=== PATIENT | female | born 1955 | race Caucasian/White ===

== ENCOUNTER 2024-05-11 08:57 | Observation (INO) | payer OTHER, MEDICARE ==
[2024-05-11] MEDS ORDERED: AZITHROMYCIN 250 MG TAB ONE (09:24)
[2024-05-11] MEDS ORDERED: IPRATROPIUM BROM 0.5MG/2.5ML ONE (09:24)
[2024-05-11] MEDS ORDERED: METHYLPREDNISOLONE 125 MG INJ ONE (09:24)
[2024-05-11] MEDS ORDERED: ALBUTEROL 2.5 MG/3 ML NEB SOL ONE (09:24)
[2024-05-11 09:32] LABS: Absolute Eosinophils 0.2 K/uL (0-0.5); Absolute Lymphocytes (CBC) 1.2 K/uL (0.7-4.9); Absolute Monocytes 0.6 K/uL (0.1-1.3); Absolute Neutrophil 4.6 K/uL (1.8-8.0); Basophils % 0.7 % (0-1.3); Eosinophils % 2.5 % (0-4.4); Hematocrit 49.1 % (36.0-45.0); Lymphocytes % 18.3 % (15.3-44.8); MCH 30.7 pg (27.0-35.0); MCHC 32.7 g/dL (32.0-36.0); MCV 93.9 fL (80-100); MPV 8.3 fL (7.6-11.3); Monocytes % 9.7 % (3.3-12.3); Neutrophils % 68.8 % (41.7-73.7); Nucleated Red Blood Cells % 0.1 % (0-0); Platelets 246 thou/uL (152-406); RBC Red Blood Cell Count 5.23 M/uL (3.86-4.86); Red Cell Distribution Width 13.6 % (12.1-15.2)
[2024-05-11 09:49] LABS: Anion Gap 6.2 mEq/L (5.0-15.0); Potassium 4.2 mEq/L (3.5-5.1)
[2024-05-11 10:01] LABS: SARS-CoV-2 Antigen CONTROL BLUE LINE VIS/BG OK; SARS-CoV-2 Antigen Rapid Res Negative (Negative)
--- NOTE | 2024-05-11 11:09 | ER ---
Nurse's Notes [facility] Name: Nicolasa Barrios Age: 68 yrs Sex: Female : 1955 Arrival Date: 05/11/2024 Time: 08:57 Bed 6 Private MD: Diagnosis: COPD/ Chronic obstructive pulmonary disease with (acute) exacerbation Presentation: 05/11 09:03 Chief complaint: EMS states: Hx of stage 4 COPD has recently been seeing a direct marketing representative who has her monitoring her home o2 to see if she qualifies for home oxygen, started feeling SOB yesterday, was worse today, checked Spo2 and was 80%, when EMS arrived pt was 92% RA, placed on 3L NC and SOB improved, SPo2 96%. Coronavirus screen: Vaccine status: Patient reports being unvaccinated. Ebola Screen: No symptoms or risks identified at this time. Initial Sepsis Screen: Does the patient meet any 2 criteria? No. Patient's initial sepsis screen is negative. Does the patient have a suspected source of infection? No. Patient's initial sepsis screen is negative. Risk Assessment: Do you want to hurt yourself or someone else? Patient reports no desire to harm self or others. Onset of symptoms was May 11, 2024. 09:03 Method Of Arrival: EMS: [facility] 09:03 Acuity: DOMINIK 3 Triage Assessment: 09:18 General: Appears in no apparent distress. comfortable, slender, well groomed, Behavior ph is calm, cooperative, appropriate for age. Pain: Denies pain. Neuro: Level of Consciousness is awake, alert, obeys commands, Oriented to person, place, time, situation. Cardiovascular: Capillary refill < 3 seconds in bilateral fingers Patient's skin is warm and dry. Respiratory: Airway is patent Respiratory effort is even, unlabored, Respiratory pattern is regular, symmetrical. GI: No signs and/or symptoms were reported involving the gastrointestinal system. Derm: Skin is pink, warm \T\ dry. Musculoskeletal: Circulation, motion, and sensation intact. Range of motion: intact in all extremities. Historical: - Allergies: 09:19 No Known Allergies; ph - Home Meds: :18 Anoro Ellipta 62.5-25 mcg/actuation inhalation Blister, With Inhalation Device [Active];ph - PMHx: 09:18 Chronic obstructive lung disease; ph - Immunization history:: Adult Immunizations unknown. - Infectious Disease History:: Denies. - Social history:: Smoking status: Patient/guardian denies using tobacco, Stopped _ months ago 1. Screenin:25 [facility] ED Fall Risk Assessment (Adult) History of falling in the last 3 months, ph including since admission No falls in past 3 months (0 pts) Confusion or Disorientation No (0 pts) Intoxicated or Sedated No (0 pts) Impaired Gait No (0 pts) Mobility Assist Device Used No (0 pt) Altered Elimination No (0 pt) Score/Fall Risk Level 0 - 2 = Low Risk Oriented to surroundings, Maintained a safe environment, Hourly rounding (assess needs \T\ fall precautionary measures) done. Abuse screen: Denies threats or abuse. Denies injuries from another. Nutritional screening: No deficits noted. Tuberculosis screening: No symptoms or risk factors identified. Assessment: 09:22 General: SEE TRIAGE ASSESSMENT. ph 10:22 Reassessment: Patient appears in no apparent distress at this time. No changes from [facility] previously documented assessment. Patient and/or family updated on plan of care and expected duration. Pain level reassessed. Patient is alert, oriented x 3, equal unlabored respirations, skin warm/dry/pink. 11:06 Reassessment: Patient appears in no apparent distress at this time. No changes from [facility] previously documented assessment. Patient and/or family updated on plan of care and expected duration. Pain level reassessed. Patient is alert, oriented x 3, equal unlabored respirations, skin warm/dry/pink. 12:30 Reassessment: Patient appears in no apparent distress at this time. Patient and/or ph family updated on plan of care and expected duration. Pain level reassessed. Patient is alert, oriented x 3, equal unlabored respirations, skin warm/dry/pink. 14:00 Reassessment: Patient appears in no apparent distress at this time. Patient and/or ph family updated on plan of care and expected duration. Pain level reassessed. Patient is alert, oriented x 3, equal unlabored respirations, skin warm/dry/pink. Vital Signs: 09:03 BP 123 / 75; Pulse 88; Resp 18; Temp 97.9; Pulse Ox 95% on 2 lpm NC; Weight 33.57 kg; ph Height 5 ft. 4 in. ; 10:58 BP 99 / 73; Pulse 82; Resp 20 S; Pulse Ox 91% on R/A; kc6 10:58 Pulse Ox 87% on R/A; kc6 11:05 Pulse Ox 96% on 2.5 lpm NC; kc6 12:00 BP 104 / 64; Pulse 83; Resp 20; Pulse Ox 97% on 2 lpm NC; ph 13:00 BP 104 / 73; Pulse 79; Resp 20; Temp 97.2; Pulse Ox 96% on 2 lpm NC; ph 14:00 BP 99 / 68; Pulse 78; Resp 18; Pulse Ox 96% on 2 lpm NC; ph 15:00 BP 102 / 68; Pulse 79; Resp 16; Temp 97.5; Pulse Ox 95% on 2 lpm NC; ph 09:03 Body Mass Index 12.70 (33.57 kg, 162.56 cm) ph ED Course: 09:01 Patient arrived in ED. ec2 09:01 Elder Meyer MD is Attending Physician. ec2 09:03 Laurence Serrano RN is Primary Nurse. ph 09:18 Triage completed. ph 09:18 Arm band placed on Patient placed in an exam room, on a stretcher, on oxygen, on ph environmental monitoring technician, on pulse oximetry. 09:25 Initial lab(s) drawn, by ED staff, sent to lab. Inserted saline lock: 20 gauge in right ph antecubital area, using aseptic technique. Blood collected. Flushed with 10 mL NS. 09:34 SARS RAPID Sent. kc6 09:34 Influenza Screen (a \T\ B) Sent. kc6 10:41 Chest Single View In Process Unspecified. EDMS 11:08 Melvin Espana MD is Hospitalizing Provider. ec2 11:14 Patient has correct armband on for positive identification. Bed in low position. Call light in reach. Side rails up X 1. quality assurance monitor body on. Pulse ox on. NIBP on. Door closed. Noise minimized. 11:14 No provider procedures requiring assistance completed. Patient admitted, IV remains in ph place. Administered Medications: 09:33 Drug: DuoNeb Nebulize (3:1) (2.5 mg - 0.5 mg) 3 ml Nebulizer once Route: Nebulizer; kc6 11:06 Follow up: Response: No adverse reaction kc6 09:46 Drug: MethylPrednisoLONE IVP 125 mg IVP once Route: IVP; Site: right antecubital; kc6 11:06 Follow up: Response: No adverse reaction kc6 09:46 Drug: AZITHromycin PO 500 mg PO once Route: PO; kc6 11:06 Follow up: Response: No adverse reaction kc6 11:39 Drug: Rocephin IV 1 grams IV at calculated rate once; Given slow IV push per pharmacy ph instructions Route: IV; Rate: calculated rate; Site: right antecubital; 12:10 Follow up: Response: No adverse reaction; IV Status: Completed infusion ph Medication: 11:14 VIS not applicable for this client. ph Outcome: 11:08 Decision to Hospitalize by Provider. ec2 15:35 Patient left the ED. kc6 15:35 Admitted to Med/surg accompanied by tech, family with patient, room 218, with oxygen, ph 15:35 Condition: stable 15:35 Instructed on the need for admit, Signatures: Dispatcher [employer] Laurence Trevino RN RN ph Campbell, Kaitlyn, RN RN kc6 Elder Meyer MD MD ec2 Corrections: (The following items were deleted from the chart) 09:51 09:51 In radiology for Chest Single View+RAD.RAD.BRZ. JOSE GARCIA
--- NOTE | 2024-05-11 11:09 | EDPHYS ---
Physician Documentation [facility] Name: Nicolasa Barrios Age: 68 yrs Sex: Female : 1955 Arrival Date: 05/11/2024 Time: 08:57 Bed 6 Private MD: ED Physician Elder Meyer HPI: 05/11 09:09 This 68 yrs old Female presents to ER via Unassigned with complaints of sob. ec2 09:09 Patient arrives today for evaluation of shortness of breath. Patient reports several ec2 days of shortness of breath. Patient reports that she has been experiencing some cough as well as some fatigue and decreased p.o. intake. No vomiting, no diarrhea, no fevers. No chest pain. Patient reports history of COPD. Not on baseline oxygen.. Historical: - Allergies: 09:19 No Known Allergies; ph - Home Meds: 09:18 Anoro Ellipta 62.5-25 mcg/actuation inhalation Blister, With Inhalation Device [Active];ph - PMHx: 09:18 Chronic obstructive lung disease; ph - Immunization history:: Adult Immunizations unknown. - Infectious Disease History:: Denies. - Social history:: Smoking status: Patient/guardian denies using tobacco, Stopped _ months ago 1. ROS: 09:09 Constitutional: as per hpi ec2 Exam: 09:09 Constitutional: GEN: NAD Head: atraumatic Eyes: EOMI Ears: External ears are ec2 normal. CV: regular rate LUNGS: no respiratory distress ABD: non-distended SKIN: no evidence of rashes MSK: no evidence of trauma Vital Signs: 09:03 BP 123 / 75; Pulse 88; Resp 18; Temp 97.9; Pulse Ox 95% on 2 lpm NC; Weight 33.57 kg; ph Height 5 ft. 4 in. ; 10:58 BP 99 / 73; Pulse 82; Resp 20 S; Pulse Ox 91% on R/A; kc6 10:58 Pulse Ox 87% on R/A; kc6 11:05 Pulse Ox 96% on 2.5 lpm NC; kc6 12:00 BP 104 / 64; Pulse 83; Resp 20; Pulse Ox 97% on 2 lpm NC; ph 13:00 BP 104 / 73; Pulse 79; Resp 20; Temp 97.2; Pulse Ox 96% on 2 lpm NC; ph 14:00 BP 99 / 68; Pulse 78; Resp 18; Pulse Ox 96% on 2 lpm NC; ph 15:00 BP 102 / 68; Pulse 79; Resp 16; Temp 97.5; Pulse Ox 95% on 2 lpm NC; ph 09:03 Body Mass Index 12.70 (33.57 kg, 162.56 cm) ph MDM: 09:04 Patient medically screened. ec2 09:09 Data reviewed: vital signs. ED course: Patient arrives today for shortness of breath. ec2 Examination remarkable for well-appearing nontoxic individuals otherwise in no acute distress with a reassuring examination. Will obtain lab work, EKG, chest x-ray.. 09:38 ED course: EKG independently reviewed and interpreted by me, shows normal sinus rhythm, ec2 rate of 85, no acute ST segment elevations, nonactionable intervals.. 09:52 ED course: Metabolic profile reassuring, CBC nonactionable, BNP minimally elevated. . ec2 11:08 ED course: Patient with saturations in the mid 80s at 86% on room air, will admit for ec2 oxygen requirement. Discussed case with hospitalist, pending admission.. 05/11 09:09 Order name: Basic Metabolic Panel; Complete Time: 09:51 ec2 05/11 09:09 Order name: CBC with Diff; Complete Time: 09:51 ec2 05/11 09:09 Order name: BNP; Complete Time: 09:51 ec2 05/11 09:09 Order name: Influenza Screen (a \T\ B); Complete Time: 10:08 ec2 05/11 09:09 Order name: SARS RAPID; Complete Time: 10:08 ec2 05/11 12:32 Order name: Basic Metabolic Panel EDLA 05/11 12:32 Order name: Basic Metabolic Panel EDMS 05/11 12:32 Order name: Basic Metabolic Panel EDMS 05/11 12:32 Order name: Basic Metabolic Panel EDLA 05/11 12:32 Order name: CBC with Automated Diff EDMS 05/11 12:32 Order name: CBC with Automated Diff EDMS 05/11 12:32 Order name: CBC with Automated Diff EDMS 05/11 12:32 Order name: CBC with Automated Diff EDMS 05/11 12:32 Order name: NT PRO-BNP EDLA 05/11 12:32 Order name: NT PRO-BNP EDLA 05/11 10:41 Order name: Chest Single View; Complete Time: 13:53 EDMS 05/11 09:09 Order name: EKG; Complete Time: 09:10 ec2 05/11 12:43 Order name: Social Service Consult EDLA 05/11 09:09 Order name: Cardiac monitoring; Complete Time: 09:17 ec2 05/11 09:09 Order name: EKG - Nurse/Tech; Complete Time: 09:33 ec2 05/11 09:09 Order name: IV Saline Lock; Complete Time: 09:22 ec2 05/11 09:09 Order name: Labs collected and sent; Complete Time: 09:22 ec2 05/11 09:09 Order name: O2 Per Protocol; Complete Time: 09:17 ec2 05/11 09:09 Order name: O2 Sat Monitoring; Complete Time: 09:17 ec2 05/11 09:51 Order name: Misc. Order: wean off oxygen; Complete Time: 10:03 ec2 Administered Medications: 09:33 Drug: DuoNeb Nebulize (3:1) (2.5 mg - 0.5 mg) 3 ml Nebulizer once Route: Nebulizer; kc6 11:06 Follow up: Response: No adverse reaction kc6 09:46 Drug: MethylPrednisoLONE IVP 125 mg IVP once Route: IVP; Site: right antecubital; kc6 11:06 Follow up: Response: No adverse reaction kc6 09:46 Drug: AZITHromycin PO 500 mg PO once Route: PO; kc6 11:06 Follow up: Response: No adverse reaction kc6 11:39 Drug: Rocephin IV 1 grams IV at calculated rate once; Given slow IV push per pharmacy ph instructions Route: IV; Rate: calculated rate; Site: right antecubital; 12:10 Follow up: Response: No adverse reaction; IV Status: Completed infusion ph Disposition Summary: 05/11/24 11:08 Hospitalization Ordered Notes: Hospitalization Status: Inpatient Admission ec2 Provider: Melvin Espana ec2 Location: Telemetry/MedSurg (Inpatient) ec2 Condition: Stable ec2 Problem: new ec2 Symptoms: have improved ec2 Bed/Room Type: Standard ec2 [facility] 14[facility]19[facility] eb Diagnosis - COPD/ Chronic obstructive pulmonary disease with (acute) exacerbation ec2 Discharge Instructions: - Discharge Summary Sheet ec2 - Chronic Obstructive Pulmonary Disease Exacerbation ec2 Forms: - Medication Reconciliation Form ec2 - SBAR form ec2 - Leadership Thank You Letter ec2 Prescriptions: - Zithromax Z-Guy 250 mg Oral Tablet - take 1 tablet ORAL route as directed for 5 days Day 1 - take two (2) tablets ec2 one time. Day 2, 3, 4 , 5 take one (1) tablet once daily.; 6 tablet; Refills: 0, Product Selection Permitted - Prednisone 20 mg Oral Tablet - take 2 tablets ORAL route once daily for 5 days; 10 tablet; Refills: 0, Product ec2 Selection Permitted Signatures: Dispatcher [employer] EDLaurence Gatica RN RN Monique Delcid Kaitlyn, RN RN kc6 Elder Meyer MD MD ec2 Corrections: (The following items were deleted from the chart) 09:10 09:10 Influenza Screen (A \T\ B)+BA.LAB.BRZ ordered. EDMS EDMS 09:10 09:10 SARS-COV-2 Antigen Rapid+I.LAB.BRZ ordered. EDMS EDMS 09:51 09:10 Chest Single View+RAD.RAD.BRZ ordered. EDMS EDMS 14:19 11:08 ec2 eb
[2024-05-11] MEDS ORDERED: NA CHLORIDE 0.9% 50 ML ONE (11:17)
[2024-05-11] MEDS ORDERED: CEFTRIAXONE 1000 MG/VIAL ONE (11:17)
[2024-05-11] MEDS ORDERED: ACETAMINOPHEN 500 MG TAB PO PRN (12:28)
--- NOTE | 2024-05-11 12:38 | P.HP ---
Certification for Inpatient Patient admitted to: Observation With expected LOS: <2 Midnights Patient will require the following post-hospital care: Other (for Home O2) Practitioner: I am a practitioner with admitting privileges, knowledge of patient current condition, hospital course, and medical plan of care. Services: Services provided to patient in accordance with Admission requirements found in Title 42 Section 412.3 of the Code of Federal Regulations <Ninfa Epps - Last Filed: 05/11/24 12:33> Patient History Date of Service: 05/11/24 History of Present Illness: Ms. Barrios is a 68-year-old female with a past medical history of COPD. She has decreased and is attempting to stop smoking and is down to 10 cigarettes/day. She sees Dr. Rodriguez for pulmonology who comes down twice monthly. She states this time of year she does have a bit more COPD exacerbation symptoms but does not have home O2. She lives with her son and asscnlaj-ru-egd and has admitted to increasing shortness of breath over the past 3 days. She presented to the emergency department this morning with a SpO2 of 80. We will admit her for IV steroids, nebs, antibiotics, and attempt room air sats for home oxygen. Her normal medication regimen includes Ellipta and Anoro. Home medications list reviewed: Yes (Ellipta and Anoro) - Past Medical/Surgical History Has patient received pneumonia vaccine in the past: No -: COPD -: Appendectomy -: Tonsillectomy -: Hysterectomy Psychosocial/ Personal History: Lives with son and wijzyweh-el-dsl, has 5 children, her twin sister lives 3 hours away. - Family History Family History: Reviewed- Non-Contributory - Social History Smoking Status: Current every day smoker Smoking therapy provided: Yes Patient receptive to therapy: Yes Alcohol use: No CD- Drugs: No Caffeine use: Yes Place of Residence: Home (With son and [id number]-ibo) <Ninfa Epps - Last Filed: 05/11/24 12:33> Date of Service: 05/11/24 <Melvin Espana - Last Filed: 05/11/24 14:50> Allergies No Known Allergies Allergy (Unverified 05/11/24 12:33) Review of Systems 10-point ROS is otherwise unremarkable General: As per HPI Eyes: Unremarkable ENT: Unremarkable Respiratory: Other (Worsening over the past 3 days), As per HPI Cardiovascular: Other (Denies chest pain) Gastrointestinal: Unremarkable Genitourinary: Unremarkable Musculoskeletal: Unremarkable Integumentary: Unremarkable Neurological: Unremarkable Lymphatics: Unremarkable <Ninfa Eppslen - Last Filed: 05/11/24 12:33> Physical Examination - Physical Exam General: Alert, In no apparent distress, Cachectic HEENT: Atraumatic, Normocephalic Respiratory: Normal air movement, Other (98% on 3 L) Cardiovascular: No edema, Normal pulses, Regular rate/rhythm Capillary refill: <2 Seconds Gastrointestinal: Soft and benign Musculoskeletal: No clubbing Integumentary: No rashes Neurological: Normal speech, Normal tone, Normal affect Lymphatics: No axilla or inguinal lymphadenopathy External genitalia: Deferred Rectal: Deferred - Studies Laboratory Data (last 24 hrs) 05/11/24 05/11/24 09:20 09:20 WBC 6.70 Hgb 16.0 H Hct 49.1 H Plt Count 246 Sodium 138 Potassium 4.2 BUN 8 Creatinine 0.64 Glucose 114 H Microbiology Data (last 24 hrs): 05/11/24 09:31 Nasopharnyx Influenza Type A Antigen Screen - Final 05/11/24 09:31 Nasopharnyx Influenza Type B Antigen Screen - Final <Ninfa Epps Ney - Last Filed: 05/11/24 12:33> - Studies Laboratory Data (last 24 hrs) 05/11/24 05/11/24 09:20 09:20 WBC 6.70 Hgb 16.0 H Hct 49.1 H Plt Count 246 Sodium 138 Potassium 4.2 BUN 8 Creatinine 0.64 Glucose 114 H Microbiology Data (last 24 hrs): 05/11/24 09:31 Nasopharnyx Influenza Type A Antigen Screen - Final 05/11/24 09:31 Nasopharnyx Influenza Type B Antigen Screen - Final <Melvin Espana - Last Filed: 05/11/24 14:50> Assessment and Plan - Plan COPD exacerbation Chest x-ray negative pneumonia 1. Continue IV antibiotics 2. Neb treatments every 4 to 6 hours as needed 3. O2 per protocol 4. Continue with gentle hydration 5. Monitor and trend labs including CBC, CMP 6. room air sat for home O2 7. GI and DVT prophylaxis - Advance Directives Does patient have a Living Will: No Does patient have a Durable POA for Healthcare: No <Ninfa Epps Ney - Last Filed: 05/11/24 12:33> - Plan Pt brionna nd examined. I agree with the note by the DIRECTOR OF STATE. Pt is a 68yo female with past medical history of COPD who presents with shortness of breath. The SOB started 3 days ago and progressively worsened to the extent that her oxygen saturation dropped to 80% on room air this morning despite being compliant with Ellipta and Anoro. She also reports productive cough with clear sputum. This made her come to the ER. On admission, pt was hypoxic. Lab studies show wbc 6.7, Hgb 16, K 4.2, Cr 0.64. At bedside, pt is in NAD. A/P: Acute COPD exacerbation: Will continue solumedrol, duoneb, oxygen and abx. Consulted Pulm. Pt takes anoro and Ellipta Severe malnutrition: Pt was encouraged to eat. Will consult Pediatric Geneticist. DVT ppx: SCD Code: full <Melvin Espana - Last Filed: 05/11/24 14:50>
[2024-05-11] MEDS: IPRATROPIUM BROM 0.5MG/2.5ML NEB SCH (13:00)
[2024-05-11] MEDS: ALBUTEROL 2.5 MG/3 ML NEB SOL NEB SCH (13:00)
--- NOTE | 2024-05-11 13:47 | RAD REPORT ---
Procedure: Chest Single View History: Cough Comparison: none The lungs are markedly hyperaerated.. 12 mm nodular opacity mid right lung. No significant pleural effusion noted. The heart is normal size. IMPRESSION: Marked COPD 12 mm nodular opacity mid right lung may represent pulmonary nodule. Unenhanced CT chest could be obt ained for further evaluation
[2024-05-11] MEDS: METHYLPREDNISOLONE 40 MG INJ IV SCH (15:50)
[2024-05-11 15:51] VITALS: BMI 12.7
[2024-05-12 06:06] LABS: Absolute Lymphocytes (CBC) 0.6 K/uL (0.7-4.9); Absolute Monocytes 0.2 K/uL (0.1-1.3); Basophils % 0.4 % (0-1.3); Hematocrit 42.8 % (36.0-45.0); Hemoglobin 13.8 g/dL (12.0-15.0); Lymphocytes % 8.6 % (15.3-44.8); MCH 30.4 pg (27.0-35.0); MCHC 32.3 g/dL (32.0-36.0); MCV 94.1 fL (80-100); MPV 8.4 fL (7.6-11.3); Monocytes % 3.6 % (3.3-12.3); Neutrophils % 87.4 % (41.7-73.7); Platelets 199 thou/uL (152-406); RBC Red Blood Cell Count 4.55 M/uL (3.86-4.86); Red Cell Distribution Width 13.3 % (12.1-15.2)
[2024-05-12] MEDS: PANTOPRAZOLE 40MG TABLET PO SCH (06:20)
[2024-05-12 06:24] LABS: Anion Gap 4.8 mEq/L (5.0-15.0); Potassium 3.8 mEq/L (3.5-5.1)
[2024-05-12 08:30] VITALS: O2SAT 94
[2024-05-12] MEDS: NICOTINE 7 MG/PAT TD SCH (09:00)
[2024-05-12 09:36] LABS: Band Neutrophils 5 % (0-1); Blood Morphology Comment NOT SEEN (NOT SEEN); Differential Total Cells Count 100; Lymphocytes 10 % (15-42); Monocytes 6 % (0-10); Platelet Estimate ADEQ; Segmented Neutrophils 89 % (40-80)
[2024-05-12] MEDS: CEFTRIAXONE 1,000 MG in NA CHLORIDE 0.9% 50 ML IVPB SCH (09:42)
[2024-05-12] MEDS: ASPIRIN EC 81 MG TAB PO SCH (09:42)
[2024-05-12] MEDS ORDERED: AZITHROMYCIN 250 MG TAB PO ONE (10:18)
--- NOTE | 2024-05-12 10:23 | P.DS ---
Admission Date: 05/11/24 Discharge Date: 05/12/24 Reason for Admission: Acute hypoxia secondary to COPD exacerbation Brief History of Present Illness: Ms. Barrios is a 68-year-old female with a past medical history of COPD. She has decreased and is attempting to stop smoking and is down to 10 cigarettes/day. She sees Dr. Rodriguez for pulmonology who comes down twice monthly. She states this time of year she does have a bit more COPD exacerbation symptoms but does not have home O2. She lives with her son and rudnuobb-zv-plr and has admitted to increasing shortness of breath over the past 3 days. She presented to the emergency department this morning with a SpO2 of 80. We will admit her for IV steroids, nebs, antibiotics, and attempt room air sats for home oxygen. Her normal medication regimen includes Ellipta and Anoro. Hospital Course: Ms. Barrios did great over the course of her hospitalization. Home oxygen has been arranged. Antibiotic switched to p.o. Zithromax first dose was given prior to discharge. She understands she should continue Ellipta and Anoro. Will give a short burst steroids orally. Ms. Barrios will follow-up with Dr. Veras in 1 week. <Ninfa Epps - Last Filed: 05/12/24 10:18> Admission Date: 05/11/24 Discharge Date: 05/12/24 Hospital Course: Pt seen and examined. I agree with the note by the SAMPLER AND TEST PREPARER. Pt is feeling better. Will dc pt with prednisone and azithro. Continue home oxygen and other home meds. Follow up with PCP and Mailroom Courier. <Melvin Espana - Last Filed: 05/12/24 10:58> Disposition: ROUTINE DISCHARGE Discharge Condition: GOOD Vital Signs/Physical Exam: Temp Pulse Resp BP Pulse Ox 97.4 F 78 17 109/57 L 96 05/12/24 08:00 05/12/24 08:00 05/12/24 08:00 05/12/24 08:00 05/12/24 08:00 General: Alert, In no apparent distress, Cachectic HEENT: Atraumatic, Normocephalic Neck: Supple Respiratory: Diminished, Expiratory wheezes (In bases), Other (Comfortable on 2 L via nasal cannula) Cardiovascular: No edema Capillary refill: <2 Seconds Gastrointestinal: Soft and benign Musculoskeletal: No clubbing Integumentary: No rashes Neurological: Normal speech, Normal tone, Normal affect Lymphatics: No axilla or inguinal lymphadenopathy External genitalia: Deferred Rectal: Deferred Laboratory Data at Discharge: WBC 6.90 thou/uL (4.3-10.9) 05/12/24 05:48 Hgb 13.8 g/dL (12.0-15.0) D 05/12/24 05:48 Hct 42.8 % (36.0-45.0) 05/12/24 05:48 Plt Count 199 thou/uL (152-406) 05/12/24 05:48 Sodium 137 mEq/L (136-145) 05/12/24 05:48 Potassium 3.8 mEq/L (3.5-5.1) 05/12/24 05:48 BUN 9 mg/dL (7-18) 05/12/24 05:48 Creatinine 0.45 mg/dL (0.55-1.02) L 05/12/24 05:48 Glucose 140 mg/dL (74-106) H 05/12/24 05:48 <Epps,Ninfa Ney - Last Filed: 05/12/24 10:18> Vital Signs/Physical Exam: Temp Pulse Resp BP Pulse Ox 97.4 F 78 17 109/57 L 96 05/12/24 08:00 05/12/24 08:00 05/12/24 08:00 05/12/24 08:00 05/12/24 08:00 Laboratory Data at Discharge: WBC 6.90 thou/uL (4.3-10.9) 05/12/24 05:48 Hgb 13.8 g/dL (12.0-15.0) D 05/12/24 05:48 Hct 42.8 % (36.0-45.0) 05/12/24 05:48 Plt Count 199 thou/uL (152-406) 05/12/24 05:48 Sodium 137 mEq/L (136-145) 05/12/24 05:48 Potassium 3.8 mEq/L (3.5-5.1) 05/12/24 05:48 BUN 9 mg/dL (7-18) 05/12/24 05:48 Creatinine 0.45 mg/dL (0.55-1.02) L 05/12/24 05:48 Glucose 140 mg/dL (74-106) H 05/12/24 05:48 <Melvin Espana - Last Filed: 05/12/24 10:58> Diet: Regular Activity: Ad nathalie <Ninfa Epps - Last Filed: 05/12/24 10:18> <Melvin Espana - Last Filed: 05/12/24 10:58> Home Medications: Umeclidinium Brm/Vilanterol Tr [Anoro Ellipta 62.5-25 Mcg INH] 1 puff PO DAILY 05/11/24 Azithromycin [Zithromax] 500 mg PO DAILY #4 05/12/24 predniSONE [Deltasone] 20 mg PO BID #8 tab 05/12/24 New Medications: predniSONE [Deltasone] 20 mg PO BID #8 tab Azithromycin [Zithromax] 500 mg PO DAILY #4 Physician Discharge Instructions: Ms. Barrios did great over the course of her hospitalization. Home oxygen has been arranged. Antibiotic switched to p.o. Zithromax, first dose was given prior to discharge. She understands she should continue Ellipta and Anoro. Will give a short burst of steroids orally. Ms. Barrios will follow-up with Dr. Veras in 1 week. Followup: Emmanuel Veras MD [ACTIVE - CAN ADMIT] - 1-2 Weeks NONE,NONE [Primary Care Provider] -
[2024-05-12] MEDS: AZITHROMYCIN 250 MG TAB PO SCH (10:53)
[2024-05-12 12:10] VITALS: BP 111/56; TEMP 98
--- NOTE | 2024-05-12 12:12 | EKG ---
Test Date: 2024-05-11 Test Time: 09:34:12 Journeyman Wireman: PILO MEASUREMENT RESULTS: Intervals: Rate: 85 MN: 144 QRSD: 60 QT: 356 QTc: 423 [place]: P: 91 MN: 144 QRS: 75 T: 96 INTERPRETIVE STATEMENTS: Normal sinus rhythm Low voltage QRS Borderline ECG No previous ECG available for comparison Electronically Signed On 05-12-24 12:09:19 CDT by Mazin Jaramillo
== END 2024-05-12 12:23 | disposition home or self-care (01) ==
LOC: ER 08:57 → ERHOLD 12:44 → 2ND 15:00
PROVIDERS: ADMIT Hospitalist; ATTEND Hospitalist
DX: J44.1 Chronic obstructive pulmonary disease with (acute) exacerbation (principal); R09.02 Hypoxemia; Z11.52 Encounter for screening for COVID-19
CPT/HCPCS: 36415; 71045; 80048; 83880; 85025; 87804; 87811; 93005; 94640; 94760; 96365; 96375; 99285; G0378; J0696; J2919; J7613; J7644